=== PATIENT | female | born 1970 | race Caucasian/White ===

== ENCOUNTER 2018-01-29 20:16 | Emergency (ER) | payer SELFPAY ==
[2018-01-29] MEDS: IPRATROPIUM/ALBUTEROL SULFATE 3 ML AMPUL.NEB NEB ONE ×3 (20:30→21:40)
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
[2018-01-29] MEDS: methylPREDNISolone SOD SUCC 40 MG/ML VIAL IVP ONE (20:40)
[2018-01-29] MEDS: SODIUM CHLORIDE 3 ML VIAL.NEB IH ONE (20:42)
[2018-01-29 20:46] LABS: BASOPHILS % 0.5 (0.0-1.5); EOSINOPHILS % 2.8 % (0.0-6.8); MEAN CORPUSCULAR HEMOGLOBIN 31.3 pg (28.0-34.0); MEAN CORPUSCULAR VOLUME 94.5 fl (80.0-100.0); MONOCYTES % 4.7 % (0.0-11.0); NEUTROPHILS # 5.5 # k/uL (1.4-7.7)
[2018-01-29] MEDS: BUDESONIDE 0.5MG/2ML AMPUL.NEB NEB ONE (20:48)
[2018-01-29 21:06] LABS: eGFR (African) > 60; eGFR (Non-African) > 60
[2018-01-29] MEDS: cefTRIAXone SODIUM 1 GM in 0.9 % SODIUM CHLORIDE 50 ML IV ONE (21:15)
[2018-01-29] MEDS: 0.9 % SODIUM CHLORIDE 1,000 ML IV ONE (21:15)
[2018-01-29] MEDS: AZITHROMYCIN 250 MG TABLET PO ONE (21:18)
--- NOTE | 2018-01-29 21:18 | Diagnostic Imaging Report ---
REMINGTON HERNANDEZ [facility] [address] [facility] [address] [address] Report Submission Date: Jan 29, 2018 9:15:33 PM CDT Patient Study Name: JAMIL JEFFREY Date: Jan 29, 2018 8:49:59 PM CDT Modality Type: DX Gender: F Description: CHEST : 68 Institution: [facility] Physician: REMINGTON HERNANDEZ PA and lateral chest Clinical history: Severe cough and wheezing. Shortness of breath Findings: Examination of the chest in PA and lateral views with no prior films for comparison demonstrates the lungs to be clear. Cardiovascular and mediastinal silhouettes are within normal limits. The bony thorax is intact. Impression: 1. No active disease. Electronically signed on Jan 29, 2018 9:15:33 PM CDT by: Fredy SHELL
[2018-01-29] MEDS: cefTRIAXone SODIUM 1 GM VIAL ONE (21:19)
[2018-01-29 22:35] VITALS: BP 128/92
== END 2018-01-29 22:30 | disposition home or self-care (01) ==
LOC: ED 20:16
DX: J44.1 Chronic obstructive pulmonary disease with (acute) exacerbation (principal)
CPT/HCPCS: 71046; 80053; 85025; 87040; J0696; J2920; J7030; J7626; 94640; 96365; 96368; 96375; 99284; J1030; S1016